=== PATIENT | male | born 1980 | race Caucasian/White ===

== ENCOUNTER 2016-12-25 18:31 | Inpatient (IN) | payer MEDICAID, OTHER ==
[~2016-12-25] VITALS: Ht 175.3 cm; Wt 90.0 kg
[2016-12-25] MEDS ORDERED: KETOROLAC 30 MG/1 ML ONE (19:11)
[2016-12-25 19:28] LABS: HEMATOCRIT 48.4 % (39.2-51.8); HEMOGLOBIN 16.4 g/dL (13.7-18.0); WHITE BLOOD COUNT 18.3 x10^3/uL (3.4-10)
[2016-12-25] MEDS ORDERED: KETOROLAC 30 MG/1 ML IM ONE (19:30)
[2016-12-25] MEDS ORDERED: MORPHINE SULFATE 4 MG/ML, 1ML IVPush PRN (19:30)
[2016-12-25] MEDS ORDERED: KETOROLAC 30 MG/1 ML IVPush ONE (19:30)
[2016-12-25 19:40] LABS: ASPARTATE AMINO TRANSFERASE 19 U/L (15-37); BLOOD UREA NITROGEN 15 mg/dL (7-18)
[2016-12-25] MEDS ORDERED: ACETAMINOPHEN 325 MG TABLET PO ONE (20:00)
[2016-12-25] MEDS ORDERED: SODIUM CHLORIDE 0.9% 1,000ML IVBOLUS ONE (20:00)
[2016-12-25] MEDS ORDERED: ACETAMINOPHEN 650 MG/20.3 ML UDC ONE (20:46)
[2016-12-25] MEDS ORDERED: CEFTRIAXONE PMX 1GM/50ML 50 ML ONE (20:58)
[2016-12-25] MEDS ORDERED: CEFTRIAXONE PMX 1GM/50ML 50 ML IV ONE (21:00)
[2016-12-25 21:53] LABS: DAU SCREEN DISCLAIMER
[2016-12-25] MEDS ORDERED: DOXYCYCLINE 100 MG in DEXTROSE 5% 250 ML IV ONE (22:30)
[2016-12-25] MEDS ORDERED: POLYETHYLENE GLYCOL 17 GM PACKET PO PRN (23:30)
[2016-12-25] MEDS ORDERED: ACETAMINOPHEN 325 MG TABLET PO PRN (23:30)
[2016-12-25] MEDS ORDERED: hydrALAzine 20 MG/ML, 1ML IVPush PRN (23:30)
[2016-12-26 00:06] VITALS: BP 120/78
[2016-12-26] MEDS: LACTATED RINGERS 1,000 ML IV SCH ×2 (00:13→08:37)
[2016-12-26 01:59] VITALS: BP 120/78
[2016-12-26 05:42] LABS: HEMATOCRIT 43.4 % (39.2-51.8); HEMOGLOBIN 14.7 g/dL (13.7-18.0); WHITE BLOOD COUNT 16.5 x10^3/uL (3.4-10)
[2016-12-26 05:57] LABS: BLOOD UREA NITROGEN 13 mg/dL (7-18)
[2016-12-26 06:02] LABS: ASPARTATE AMINO TRANSFERASE 14 U/L (15-37)
[2016-12-26 08:34] VITALS: BP 115/73
[2016-12-26] MEDS: ENOXAPARIN 40 MG/0.4 ML SQ SCH (08:37)
[2016-12-26] MEDS: DOXYCYCLINE 50 MG/5 ML ORAL SUSP PO SCH ×2 (08:37→20:52)
[2016-12-26] MEDS ORDERED: SODIUM PHOSPHATE 20 MMOL in SODIUM CHLORIDE 0.9% 500 ML IV ONE (09:30)
[2016-12-26 14:56] VITALS: BP 138/77
[2016-12-26] MEDS: OXYcodone/APAP 5/325MG TABLET PO PRN ×2 (16:56→21:04)
[2016-12-26 20:15] VITALS: BP 106/56
[2016-12-26] MEDS: CEFTRIAXONE PMX 1GM/50ML 50 ML IV SCH (20:52)
[2016-12-27 02:50] VITALS: BP 150/83
[2016-12-27 05:48] LABS: HEMATOCRIT 41.6 % (39.2-51.8); HEMOGLOBIN 13.9 g/dL (13.7-18.0); WHITE BLOOD COUNT 14.4 x10^3/uL (3.4-10)
[2016-12-27 06:05] LABS: ASPARTATE AMINO TRANSFERASE 14 U/L (15-37); BLOOD UREA NITROGEN 15 mg/dL (7-18)
[2016-12-27 07:45] VITALS: BP 124/82
[2016-12-27] MEDS: LACTATED RINGERS 1,000 ML IV SCH ×4 (09:03→14:02)
[2016-12-27] MEDS: OXYcodone/APAP 5/325MG TABLET PO PRN ×2 (09:09→14:03)
[2016-12-27] MEDS: DOXYCYCLINE 50 MG/5 ML ORAL SUSP PO SCH ×2 (09:10→21:18)
[2016-12-27] MEDS: ENOXAPARIN 40 MG/0.4 ML SQ SCH (09:11)
[2016-12-27 13:56] VITALS: BP 123/76
[2016-12-27] MEDS ORDERED: POTASSIUM PHOSPHATE 22 MEQ in SODIUM CHLORIDE 0.9% 500 ML IV ONE (14:00)
[2016-12-27] MEDS ORDERED: ACETAMINOPHEN 325 MG TABLET PO PRN (18:30)
[2016-12-27] MEDS ORDERED: hydrALAzine 20 MG/ML, 1ML IVPush PRN (18:30)
[2016-12-27] MEDS ORDERED: POLYETHYLENE GLYCOL 17 GM PACKET PO PRN (18:30)
[2016-12-27 20:05] VITALS: BP 126/75
[2016-12-27] MEDS: CEFTRIAXONE PMX 1GM/50ML 50 ML IV SCH (21:19)
[2016-12-28] MEDS: OXYcodone/APAP 5/325MG TABLET PO PRN ×2 (00:48→08:58)
[2016-12-28 01:35] VITALS: BP 150/72
[2016-12-28 05:13] LABS: HEMATOCRIT 42.2 % (39.2-51.8); HEMOGLOBIN 14.2 g/dL (13.7-18.0); WHITE BLOOD COUNT 8.8 x10^3/uL (3.4-10)
[2016-12-28 05:20] LABS: BLOOD UREA NITROGEN 15 mg/dL (7-18)
[2016-12-28 07:22] VITALS: BP 130/77
[2016-12-28] MEDS: LACTATED RINGERS 1,000 ML IV SCH (07:31)
[2016-12-28] MEDS: DOXYCYCLINE 50 MG/5 ML ORAL SUSP PO SCH (08:55)
[2016-12-28] MEDS: ENOXAPARIN 40 MG/0.4 ML SQ SCH (09:04)
[2016-12-28 09:56] VITALS: BP 126/76
[2016-12-28] MEDS ORDERED: DOXY100T PO (11:23)
[2016-12-28] MEDS ORDERED: HYDR-3237 PO (11:24)
== END 2016-12-28 11:30 | disposition home or self-care (01) | DRG 872 ==
LOC: SUATTDRO 23:05 → ED 23:32 → 4NOR 12-26 00:02 → DCLOUNGE 12-28 11:13
PROVIDERS: ADMIT Hospitalist; ATTEND Hospitalist
DX: A41.9 Sepsis, unspecified organism (principal); E83.39 Other disorders of phosphorus metabolism; E87.1 Hypo-osmolality and hyponatremia; K56.49 Other impaction of intestine; N30.90 Cystitis, unspecified without hematuria; F15.10 Other stimulant abuse, uncomplicated; M47.9 Spondylosis, unspecified; M48.00 Spinal stenosis, site unspecified; N34.2 Other urethritis; N45.1 Epididymitis; N50.89 Other specified disorders of the male genital organs; Z87.442 Personal history of urinary calculi
CPT/HCPCS: 36415; 71020; 74176; 76870; 80048; 80053; 80307; 81001; 83605; 83735; 84100; 84145; 85025; 87040; 87086; 87491; 87591; 93005; 96365; 96372; 96375; J0696; J1650; J1885; J7060; G0479; J7030; J7040; J7120